=== PATIENT | male | born 1960 | race Caucasian/White ===

== ENCOUNTER → 2020-02-19 07:06 | Outpatient (CLI) | payer BC, SELFPAY ==
--- NOTE | 2020-02-19 07:10 | CT_ITS ---
STUDY: CT SCAN OF LOWER EXTREMITY RIGHT REASON FOR EXAM: Male, 60 years old. OSTEOARTHRITIS KERMIT RT KNEE, DB, HTN RADIATION DOSAGE (If Supplied By Facility): CTDIvol = ( 18.76 ) mGy, DLP = ( 1151.41 ) mGycm. Individualized dose optimization techniques were used for this CT.? TECHNIQUE: Multiple axial tomographic images of the hip joint, knee joint and ankle joints were obtained. Coronal and sagittal reconstructions obtained as well. COMPARISON: None. FINDINGS: The hip joint is unremarkable. No significant joint space narrowing is seen. There is a marked degree of joint space narrowing involving the medial compartments of the knee joint with a degenerative spur formation along the medial femoral condyle as well as the medial tibial plateau. Minimal subchondral sclerosis is seen in the medial tibial plateau. Minimal joint effusion. Imaging of the ankle joint was obtained. No significant abnormality is seen. CT/Extremity Lower without Contra IMPRESSION: Marked degree of joint space narrowing involving the medial compartment of knee joint as described. Electronically Signed: Vern Joseph, at 12:52 EST , Service support ,
== END ==
PROVIDERS: PCP Family Medicine; Referring Provider Specialist; Visit Provider Specialist
DX: M17.11 Unilateral primary osteoarthritis, right knee (principal)
CPT/HCPCS: 73700

== ENCOUNTER 2020-03-20 06:12 | Day surgery (SDC) | payer BC, SELFPAY ==
--- NOTE | 2020-02-19 13:21 | HP.PCM_ITS ---
History and Physical History and Physical [facility] Patient Name: Raheem Mckoy : 1960 From: BETHANY DUKE PA-C DATE OF SURGERY: 03/06/2020 SCHEDULED PROCEDURE: right knee unicompartmental knee replacement versus total knee arthroplasty HISTORY OF PRESENT ILLNESS: Preoperative history and physical exam was performed on February 19, 2020. This is a 60-year-old male who has been having ongoing pain for over 8 years. He has been treated by an outside orthopedic surgeon who has treated him conservatively for the past several years. Patient received a recent corticosteroid injection on December 07, 2019 which only gave a few days of relief. He has had previous Euflexxa injections with no relief in symptoms. He has had multiple corticost eroid injections in the past. He has been through formal physical therapy with no relief. He has attempted bracing with no relief. His pain can reach 7/10 with activities. Pain is constant, aching, sore. Pain is increased going up and down stairs. He has pain over the medial aspect of the knee. Patient has fallen and tripped/stumbled due to the knee pain. He feels unsafe climbing. Patient denies previous surgery on the right knee. He denies any fevers, chills, recent infections. He has medical history pertinent for type 2 diabetes mellitus and hypertension. Pain is waking him at night. He has had previous MRI in the past which has shown a torn meniscus which was treated conservatively. After failing conservative measures and discussing treatment options, the patient does wish to proceed with a right unicompartmental knee replacement versus total knee arthroplasty. We are obtaining surgical clearance from the primary care physician Dr. Acevedo. REVIEW OF SYSTEMS: ROS: Const: Denies change in appetite, fever and weight change. CV: Denies chest pain, heart murmur and irregular heartbeat. Resp: Denies cough, pneumonia, shortness of breath, tuberculosis and wheezing. GI: Denies constipation, diarrhea, heartburn, nausea, rectal itching, bloody stools and vomiting. : Denies incontinence. Musculo: Reports gait disturbance, trouble walking and weakness, but denies leg swelling and pain. Skin: Reports tattoo, but denies Raynaud's and history of shingles. Neuro: Denies ambulatory dysfunction, dizziness, numbness/tingling and tremor. Psych: Denies anxiety, insomnia and stress. Drew/Lymph: Denies anemia, bleeding/bruising tendency and past transfusion. Reviewed, no changes. PAST MEDICAL HISTORY: Advance Care Plan: No Advance Directives Effective Date: 01/25/2020 PMH: Medical Problems: Diabetes, High Blood Pressure Accidents: None Surgical Hx: Vasectomy - (1999) RT Wrist - (1999) benign tumor removal Anesthesia Complications: None Assistive Devices: Glasses, Contacts Reviewed, no changes. SOCIAL HISTORY: SH: Marital: Single.Occupation: [employer] Manager.Work Status: Not Working Currently - [employer].Hand Dominance: Right-handed. Personal Habits: Cigarette Use: Never Smoked Cigarettes.Smokeless Tobacco: Current Smokeless Tobacco User.E-Cigarette Use: Never used.Alcohol: Daily.Drug Use: Denies Use.Enjoy Exercising: Never Exercises. Reviewed, no changes. VITALS: Ht: 69 Wt: 212lb Wt k.163 BMI: 31.3 BP: 112/62 Pulse: 68 Resp: 18 T: 97.2 T: 36.2C ALLERGIES: No Known Drug Allergy Environmental - Ragweed-Sneezing MEDICATIONS: Oxycodone HCL 5 mg 1-2 tab by mouth every 4 hours, Promethazine HCL 12.5 mg 1-2 tablets by mouth every 6 hours, Famotidine 20 mg 1 by mouth every day, Amlodipine Besylate 5 mg 1 po qd, Lisinopril-Hydrochlorothiazide 20-25 mg 1 po qd, Metformin HCL ER 500 mg 2 po qd, Aspirin 81 81 mg 1 po qd, Multivitamin 1 po qd, Fish Oil 1000 mg 1 po qd, Loratadine 10 mg 1 po qd, Meloxicam 15 mg 1 po qd, Januvia 25 mg 1 po qd PRE-OP EXAM: General appearance:NORMAL Other: Eyes: Conjunctivae and lids: NORMAL Pupils: ERR Ears, Nose, Mouth, and Throat: NORMAL Other: Inspection of lips, teeth and gums: NORMAL Other: Neck: Examination of neck: no masses noted. Respiratory: Assessment of respiratory effort: NORMAL Other: Auscultation of lungs: clear to auscultation no wheezes, rhonchi or rales. Cardiovascular: Auscultation of heart: regular rate and rhythm, no murmurs, gallops or rubs. Exam of carotid arteries: NORMAL Other: Gastrointestinal: Exam of abdomen: soft, nontender, nondistended bowel sounds present. PHYSICAL EXAMINATION: Patient does walk with an antalgic gait. Right knee is cool to touch without erythema or signs of infection. He has trace effusion. Varus deformity of the right knee. There is tenderness to palpation along the medial joint line of the right knee. Nontender to palpation lateral joint line. Correctable varus alignment. Range of motion: Lacks 3 of full extension to 125 flexion on the right. Stable to anterior/posterior drawer. Sensation intact to light touch. IMAGING STUDIES: Previous x-rays of the right knee reveal medial joint space narrowing, subchondral sclerosis, osteophyte formation consistent with severe medial compartment stage IV osteoarthritis. Lateral compartment appears well maintained with trace osteophyte off the lateral tibial plateau. Varus alignment. IMPRESSION: 1. Right knee osteoarthritis 2. Type 2 diabetes mellitus 3. Hypertension PLAN: I did discuss and review with the patient all treatment options including surgical versus nonsurgical options. Patient does wish to proceed with the above-stated procedure. Potential risks, benefits, and complications of the procedure were discussed in detail including but not limited to , infection, nerve and blood vessel damage, persistent pain, numbness, tingling, paresthesias, blood clot, pulmonary embolism, and requirement for possible further surgery. The patient expressed full understanding and has no further questions for the doctor. Patient does agree to proceed with the above-stated procedure and has signed the surgery consent form. We discussed the current risks associated with COVID 19. This does include the risk of exposure while in the hospital. Patient was reassured local hospitals have low infection rates and are taking all necessary precautions to avoid exposure to patients. In addition, we discussed strategies that can be used to help limit exposure including those that limit the patient's time in the hospital. Also using strategies to limit the patient's need for continued inpatient services after being discharged from the hospital. Patient was notified that we will need to comply with any screening or testing the hospital wishes to perform or that surgery may be delayed for any positive results. This dictation was created using voice recognition software. Phonetic and/or grammatical errors may exist. ___ I have re-examined the patient. There are no clinical changes since date of exam. ___ See progress notes for changes. ___ Dictated on admission Date: Time: Signature:
--- NOTE | 2020-02-26 09:27 | EKG12_ITS ---
Test Reason : PRE OP Blood Pressure : / mmHG Vent. Rate : 095 BPM Atrial Rate : 095 BPM P-R Int : 186 ms QRS Dur : 090 ms QT Int : 336 ms P-R-T Axes : 041 052 074 degrees QTc Int : 422 ms Normal sinus rhythm Normal ECG Confirmed by RICHARD MCCORMICK, CARLOS ([id number]), continuity editor VINICIO CORBETT ([id number]) on 02/28/2020 11:00:53 AM Referred By: Sunny Elias Confirmed By:CARLOS RAMOS MD
[2020-02-26 10:07] LABS: Absolute Lymphocyte Count 2.39 X10^3/uL (0.83-4.51); Absolute Neutrophil Count 3.8 X10^3/uL (2.0-7.7); Basophil# 0.05 X10^3/uL; Basophil% 0.7 % (0-1); Eosinophil# 0.39 X10^3/uL; Eosinophils% 5.1 % (0-5); Hematocrit 44.9 % (40-54); Hemoglobin 16.1 g/dL (13.0-16.5); Lymphocyte # 2.39 X10^3/ul (4.0); Lymphocyte % 31.2 % (19-41); Mean Corp Hgb Conc 35.9 g/dL (32-36); Mean Corpuscular Hgb 32.1 pg (27.0-32.0); Mean Corpuscular Volume 89.4 fL (80-94); Mean Platelet Vol. 8.8 fl (6.2-12.0); Monocyte# 0.94 X10^3/uL; Monocyte% 12.3 % (0-10); NRBC Flagged by Analyzer 0 % (0-5); Neutrophil # 3.84 X10^3/uL (2.7-7.7); Neutrophil % 50.2 % (47-70); Platelet Count 283 K/mm3 (150-450); RBC Distribution Width CV 11.9 % (11.6-14.6); RBC Distribution Width SD 38.4 fl (35.1-43.9); Red Blood Count 5.02 M/mm3 (4.6-6.2); White Blood Count 7.7 K/mm3 (4.4-11.0)
[2020-02-26 10:18] LABS: Prothrombin Time (Protime)PT. 12.8 SECONDS (11.7-14.9)
[2020-02-26 10:19] LABS: Partial Thromboplast Time 25.1 Seconds (24.1-36.2)
[2020-02-26 10:36] LABS: AST(SGOT) 24 U/L (15-37); Alanine Aminotransfer ALT/SGPT 44 U/L (16-61); Albumin, Serum 4.1 g/dL (3.2-5.0); Alkaline Phosphatase 54 U/L (45-117); Bilirubin, Direct 0.18 mg/dL (0.00-0.30); Magnesium 1.9 mg/dL (1.6-2.6); Protein, Total 8.1 g/dL (6.4-8.2)
[2020-02-26 10:39] LABS: Anion Gap 6 (5-15); BUN 13 mg/dL (7-18); BUN/Creat Ratio 11.3 RATIO (10-20); Calcium,Total 9.4 mg/dL (8.5-10.1); Chloride 100 mmol/L (98-107); Creatinine, Serum 1.15 mg/dL (0.70-1.30); EST Glomerular Filtration Rate 69 mL/min (>60); Est Glom Filt Rate - Afr Amer 84 mL/min (>60); Glucose 201 mg/dL (74-106); Potassium 3.8 mmol/L (3.5-5.1); Sodium Level 134 mmol/L (136-145)
[2020-02-26 10:47] LABS: Hemoglobin A1c 6.3 % (3.8-5.6)
[2020-03-06 06:25] LABS: Bedside Glucose 201 mg/dL (70-110)
[2020-03-20] VITALS (11 sets, daily range): BP systolic 139–172; BP diastolic 71–94; PULSE 18–96; RESP 16–18; TEMP 36.6–37.1; O2SAT 95–100; BMI 31.6
[2020-03-20] MEDS: Lactated Ringers 1,000 ML 75 ML IV (07:00)
[2020-03-20] MEDS: Lactated Ringers 1,000 ML 999 ML IV ×3 (07:00→10:27)
[2020-03-20 07:06] LABS: Bedside Glucose 268 mg/dL (70-110)
[2020-03-20] MEDS: Scopolamine 1mg/72hr Patch 1 PATCH TD (07:11)
[2020-03-20] MEDS: Celecoxib 200 MG Capsule 400 MG PO (07:11)
[2020-03-20] MEDS: Acetaminophen 500 MG Tablet 1000 MG PO ×2 (07:12→14:00)
[2020-03-20] MEDS: Gabapentin 600 MG Tablet PO (07:12)
[2020-03-20] MEDS: Cefazolin 2 GM in 0.9% Normal Saline 100 ML IV (08:25)
[2020-03-20] MEDS: dexAMETHasone 10 MG/ML Vial IV (08:27)
--- NOTE | 2020-03-20 09:27 | OP.PCM_ITS ---
Report of Operation Date of Procedure: 03/20/20 Pre-Operative Diagnosis: Right knee primary osteoarthritis, medial compartment Post-Operative Diagnosis: Right knee primary osteoarthritis, medial compartment Surgery/Procedure Performed:: Right knee medial compartment partial knee replacement Description of Surgical Findings:: Lateral compartment was healthy, patellofemoral compartment was stable. ACL was intact and functioning proposal development manager: Hi Espinoza Type of Anesthesia:: Spinal Anesthesiologist: Harinder Eisenberg Special Medications: 2 g Ancef, 1 g TXA at incision, 1 g TXA closure, 10 mg Decadron, joint cocktail (5 mg Duramorph, 30 mL of 0.5% Ropivicaine, 1000 units of epinephrine, 30 mg of Toradol) Specimen's removed: Bony cuts Estimated Blood Loss (mL): 25 Fluids Replaced: 800 mL crystalloid Description of Procedure: Implants used: 1. Dileep size 5 femur 2. Dileep size 5 tibia 3. Dileep 9 mm polyethylene component Brief history operative indications: 60-year-old M with history of R knee anterior medial varus osteoarthritis with radiographic findings with loss of joint space, osteophyte formation and subchondral sclerosis. Failed conservative measures as mentioned in the H&P. Discussion of total knee arthroplasty as well as risk and benefits were discussed the patient including but not limited to blood loss, DVTs, PEs, neurovascular damage, general risk of anesthesia including loss of life, and stiffness or instability were discussed with patient. Patient demonstrated understanding and was able to sign informed consent. Procedure: On the date of procedure patient's R lower extremity was marked in the preoperative area. The patient was then taken back to the operating room where the patient was placed on the table in the supine position. All bony prominences were identified a well-padded. Anesthesia assumed control of the C-spine and airway and remained controlled throughout the remainder of the procedure. A tourniquet was placed on the R upper thigh and the leg was prepped in a sterile fashion. The surgeon then scrubbed at this time .Upon reentering the room R lower extremity was draped in a standard orthopedic fashion. A timeout was then called and everyone agreed upon the side, the site, the procedure to be performed, patient's identity and antibiotics given. Esmarch bandage was used to exsanguinate the extremity and the tourniquet was placed up to 250 mmHg with the knee in flexion. A midline skin incision was made and sharp dissection was taken down through skin subcutaneous tissue and fat. The standard medial parapatellar incision was made and the patella was subluxed medially. The standard minimal MCL release was done and a minimal fat pad for visualization. At this time we directed our attention towards the placement of the robotic navigation pins. 2 pins were placed in the tibia handbreadth below the tibial tubercle and 2 pins were placed in the femur with the patella in the trochlear groove 1 handbreadth above the patella. Bicortical fixation was obtained on all 4 pins. Once these pins were placed the arrays and checkpoints were placed and the femur and tibia were registered. After registering the bony landmarks bone spurs were removed and the soft tissues were tensioned and this intraoperative information was used to make intraoperative adjustments to implant position and balance the knee. The robotic arm was brought in and our attention was then directed towards the femur at this time based on our preoperative and intraoperative planning the size 5 femoral component was burred appropriately to the distal femur. Once we had appropriately burred the distal femur the pegs and he will were also burred. Next our attention was directed to the tibia. Where using our preoperative plan we buried the proximal tibia for a size 5 tibial component and then appropri ately burred the pegs. Once we had burred the femur and the tibia all excess osteophytes were again removed. The trial components were placed in the tibial trial component was used to press the posterior keel. The knee was taken through range of motion and balancing was verified using the robotic navigation. Once we were happy with our components trial components were removed and the bone was repaired reaming the distal femur and using the toothbrush saw to slot the proximal tibia. Once the bone was adequately prepared the knee was scoped. Out normal saline and 40 mL of joint cocktail was injected in the posterior medial knee. The bone ends were appropriately dried and once the cement was ready the final components were cemented into place with the trial polyethylene and held at 20? flexion. Once the cement had adequately cured and all cement was removed and the final 9 millimeter polyethylene was put into place and the final knee showed is good patella tracking and well-balanced knee without overcorrection. It should be noted that throughout the procedure the MCL was protected during all bony cuts by my medical assistant secretary. Once the final components were placed a the wound was copiously irrigated with 500 mL dilute Betadine solution followed by 1 L of normal saline solution and the periarticular injection was given. The wound was closed in a layer dong fashion using #1 vicryl interrupted sutures for the arthrotomy, 2-0 interrupted Vicryl suture for the subcuticular layer and naveen for final skin closure. A sterile compressive dressing was then placed. The patient was then awakened from anesthesia, [facility] and transferred to the PACU for recovery. Post op plan DVT ppx: ASA 81mg BID for six weeks, thigh high compression stockings for 2 weeks Follow up: in office in 2 weeks for wound check PT: to start POD #0 at hospital, outpatient PT should be arranged. My physician computer forensics examiner (PE) was a vital part of this case. They were important in appropriate retraction during the case, and protection of soft tissues during bony cuts. Their intimate knowledge of the case and my steps aided in safe and expedient completion of the procedure as well as appropriate position of the leg during the case. They were also vital in assisting with closure under my direct supervision. - Complications No intraoperative complications - Admit VTE Documentation VTE Present on Admission: No VTE Mechan Device Prophylaxis: SCD's, Thigh High STEVIE Hose VTE Pharm Prophylaxis ordered?: Yes
--- NOTE | 2020-03-20 10:22 | RAD_ITS ---
STUDY: X-RAY - RIGHT KNEE REASON FOR EXAM: Postop right knee arthroplasty. TECHNIQUE: 2 view(s) of the knee. COMPARISON: CT report 02/19/2020. FINDINGS: Normal visualized distal femur. Normal visualized proximal tibia and fibula. Normal proximal tibiofibular articulation. There is a medial femorotibial unicompartmental arthroplasty without evidence of complication. Normal lateral femorotibial compartment. Normal patellofemoral articulation. There is postoperative gas in the soft tissues and knee joint and overlying skin naveen. RAD/Knee 1 or 2 Views IMPRESSION: Uncomplicated medial femorotibial unicompartmental arthroplasty. Electronically Signed: Fahad Torres MD at 10:49 EST Tel , Service support ,
[2020-03-20] MEDS: Insulin Lispro 100 UNIT/ML INSULN.PEN SC (10:42)
[2020-03-20 10:50] LABS: Bedside Glucose 220 mg/dL (70-110)
[2020-03-20] MEDS: Cefazolin 1 GM/50 ML BAG IV (13:45)
== END 2020-03-20 14:50 | disposition home or self-care (01) ==
LOC: SDC 06:14 → AC 06:14
PROVIDERS: Anesthesiology; PCP Family Medicine; Referring Provider Specialist; Visit Provider Specialist
PROC: (CPT 27446; principal; 2020-03-20 07:45)
DX: M17.11 Unilateral primary osteoarthritis, right knee (principal); E11.9 Type 2 diabetes mellitus without complications; I10 Essential (primary) hypertension; F17.200 Nicotine dependence, unspecified, uncomplicated; Z79.84 Long term (current) use of oral hypoglycemic drugs; Z79.899 Other long term (current) drug therapy; Z20.828 Contact with and (suspected) exposure to other viral communicable diseases
CPT/HCPCS: 27446; 36415; 73560; 80048; 80076; 82962; 83036; 83735; 85025; 85610; 85730; 87081; 87426; 93005; 97162; C1776; C9803; J7120; J2405

== ENCOUNTER 2021-06-10 19:07 | Emergency (ER) | payer BC, SELFPAY ==
[2021-06-10 19:08] VITALS: BP 132/68; PULSE 116; RESP 18; TEMP 37.1; O2SAT 97; BMI 30.4
--- NOTE | 2021-06-10 19:37 | EDS_ITS ---
HPI History of Present Illness Chief Complaint: Complaint Detail of Chief Complaint: Right leg pain and swelling Informant: patient Onset/Context/Timing Onset: Weeks Current Severity: Mild Maximum Severity: Moderate Narrative Narrative: Patient presents with a 2 to 3-week history of right lower extremity pain and swelling. He states he measured his legs tonight and his right leg is 3 inches larger in diameter than his left. He has a history of prostate cancer and recently underwent a prostatectomy. He states he had a stent that was removed about 2 weeks ago. He continues to have problems controlling his urination. His urologist did place him on some oral medication for bladder control symptoms but states he has not had any relief. He denies dysuria or fever. No back pain. No chest pain or shortness of breath. [facility] Medical History Diabetes Hypertension Prostate cancer Home Medications amlodipine 5 mg PO DAILY 02/21/20 [History Last Taken 03/20/20] aspirin 81 mg PO DAILY@0800 02/21/20 [History Last Taken Unknown] lisinopril-hydrochlorothiazide 1 ea PO DAILY 02/21/20 [History Last Taken Unknown] loratadine 10 mg PO DAILY 02/21/20 [History Last Taken Unknown] metformin 1,000 mg PO DAILY 02/21/20 [History Last Taken Unknown] multivitamin with minerals 1 ea PO DAILY 02/21/20 [History Last Taken Unknown] omega-3 fatty acids-fish oil 1 ea PO DAILY 02/21/20 [History Last Taken Unknown] sitagliptin 100 mg PO DAILY 02/21/20 [History Last Taken Unknown] ciprofloxacin HCl [Cipro] 500 mg PO BID #20 tab 06/10/21 [Rx Last Taken Unknown] Allergy/AdvReac Type Severity Reaction Status Date / Time No Known Allergies Allergy Verified 06/10/21 19:08 Surgical History History of prostatectomy Social History Smoking Status: Never smoker ROS ROS ED Constitutional Constitutional ED: Denies chills or fever(s) Eyes Eyes: Denies change in vision ENT ENT ED: Denies sore throat Cardiovascular Cardiovascular: Denies chest pain Respiratory/Chest Respiratory/Chest: Denies cough or dyspnea Gastrointestinal Gastrointestinal: Denies abdominal pain, diarrhea, nausea or vomiting Genitourinary Genitourinary ED: Reports other Details: Urinary incontinence Musculoskeletal Musculoskeletal: Reports other Details: Right lower extremity pain and swelling ; Denies back pain Integumentary Denies rash Neurologic Neurologic: Denies headache(s) Allergic/Immunologic Allergic/Immunologic ED: Denies urticaria EXAM Physical Exam Const Vital Signs: 06/10/21 19:08 06/10/21 21:19 Temperature 98.8 F Temperature Source Temporal Pulse Rate 116 H 98 Respiratory Rate 18 16 Blood Pressure 132/68 H 120/75 Blood Pressure Mean 89 90 Pulse Ox 97 98 Oxygen Delivery Method Room Air Positive well nourished and well developed General Appearance ED: well developed HEENT Reports moist mucous membranes Eyes PERRL and EOMs intact bilaterally Neck supple Chest Wall inspection of chest normal and palpation of chest normal Resp normal respiratory effort and clear to auscultation bilaterally Cardio regular rate and regular rhythm GI normal to inspection, nondistended, normoactive bowel sounds and non-tender Palpation: soft Extremity Extremity Narrative: 2+ edema noted to the right lower extremity. No open wounds. Strong distal pulses. Neuro oriented x3 Sensorium / Orientation: alert Psych mental status grossly normal Skin no rashes or lesions noted MDM MDM MDM Narrative Medical decision making narrative: Lab work, urinalysis, right lower extremity ultrasound obtained. Lab Data Attestation: I reviewed the patient's lab results. Labs: Laboratory Results - last 24 hr 06/10/21 06/10/21 06/10/21 19:40 19:40 19:40 WBC 12.3 H RBC 4.02 L Hgb 12.2 L Hct 35.0 L MCV 87.1 MCH 30.3 MCHC 34.9 RDW Std Deviation 36.7 RDW Coeff of Quin 11.7 Plt Count 309 MPV 8.6 Immature Gran % (Auto) 0.600 Neut % (Auto) 89.9 H Lymph % (Auto) 5.1 L [place] % (Auto) 4.1 Eos % (Auto) 0.1 Baso % (Auto) 0.2 Absolute Neuts (auto) 11.1 H Absolute Lymphs (auto) 0.63 L Nucleated RBC % 0 Sodium 134 L Potassium 3.5 Chloride 101 Carbon Dioxide 26.0 Anion Gap 7 BUN 16 Creatinine 1.53 H Estim Creat Clear Calc 53.68 Est GFR (MDRD) Af Amer 60 Est GFR (MDRD) Non-Af 50 L BUN/Creatinine Ratio 10.5 Glucose 165 H Calcium 9.4 Urine Color Yellow Urine Clarity Cloudy Urine pH 6.0 Ur Specific [place] 1.020 Urine Protein 500 H Urine Glucose (UA) Normal Urine Ketones 5 H Urine Occult Blood 250 H Urine Nitrite Positive H Urine Bilirubin Negative Urine Urobilinogen 1 H Ur Leukocyte Esterase 500 H Urine RBC 10-25 SEEN Urine WBC >100 SEEN Ur Squamous Epith Cells 0 SEEN Urine Bacteria 1+ Urine Mucus 0 SEEN Radiography Diagnostic Testing: Clinical Impression(s) from Imaging Studies Venous Duplex 06/10/21 19:40 IMPRESSION: No sonographic evidence of deep venous thrombosis. Electronically Signed: Yusuf Monae DO at 21:27 EDT , Abdomen/Pelvis CT 06/10/21 21:06 IMPRESSION: Right greater than left pelvic sidewall fluid collections. Ileus. Electronically Signed: Maurice Humphries MD at 21:45 EDT , Treatment and Re-Evaluation Narrative: Right lower extremity ultrasound reveals no evidence of DVT. Lab work is reviewed. White count is mildly elevated at 12.3. Creatinine is 1.53, only slightly elevated when compared to prior. Urinalysis shows significant infection with greater than 100 white cells and 1+ bacteria. Nitrites are positive. Urine is sent for culture and patient given a dose of IV Rocephin. CT scan of the abdomen pelvis with IV contrast is obtained. This reveals evidence of bilateral pelvic sidewall fluid collections right side greater than left. I believe this is likely causing strain on venous return and therefore leading to the patient's right lower extremity edema. I spoke with Dr. Holt, on-call for patient's urologist Dr. Vasquez. Patient will take a copy of the CT scan with him and is to be seen in the office tomorrow. I will also electronically sent the images to [facility]. Prescription for Cipro will be sent to the pharmacy. Discharge Plan Triage Chief Complaint: Complaint ED Provider: Gisel Dubon Dx/Rx/DC Orders Clinical Impression: UTI (urinary tract infection), Post-operative complication Instructions: ED Bladder Infection, Male (Adult) Prescriptions: New ciprofloxacin HCl [Cipro] 500 mg tablet 500 mg PO BID Qty: 20 RF: 0 No Action metformin 500 MG tablet 1,000 mg PO DAILY RF: 0 amlodipine 5 MG tablet 5 mg PO DAILY RF: 0 lisinopril-hydrochlorothiazide 1 EACH tablet 1 ea PO DAILY RF: 0 aspirin 81 MG tablet,chewable 81 mg PO DAILY@0800 RF: 0 multivitamin with minerals 1 EACH tablet 1 ea PO DAILY RF: 0 omega-3 fatty acids-fish oil 1 EACH capsule 1 ea PO DAILY RF: 0 sitagliptin 100 MG tablet 100 mg PO DAILY RF: 0 loratadine 10 MG capsule 10 mg PO DAILY RF: 0 Primary Care Provider: Zachariah Acevedo Referrals: Zachariah Acevedo MD [Primary Care Provider] - Activity Restrictions/Additional Instructions: As discussed, you have fluid collections noted in your pelvis, right greater than left. This is hindering blood flow return from your leg therefore causing the swelling. Please call your urologist office first thing in the morning to be seen. They should be expecting your call. Please take the disc with your images along to your appointment. Disposition Disposition: Home, Self Care
--- NOTE | 2021-06-10 19:40 | US_ITS ---
INDICATION: RT LEG SWELLING EXAMINATION: Ultrasound US Venous Duplex LE Unilat / Limited TECHNIQUE: Thorne scale, pulse wave, and color flow Doppler imaging was performed of the lower extremity venous system. The right greater saphenous, common femoral, femoral, and popliteal veins were interrogated. Contralateral left common femoral vein assessed for comparison. COMPARISON: CT abdomen and pelvis obtained from the same evening. FINDINGS: There is normal compression, augmentation, and signal throughout the visualized deep lower extremity veins of the right leg. Left common femoral vein also normal in appearance. No mass or fluid collection. US/Venous Duplex Imag/Limited/Uni IMPRESSION: No sonographic evidence of deep venous thrombosis. Electronically Signed: Yusuf Monae DO at 21:27 EDT ,
[2021-06-10 19:53] LABS: Mucous, Urine 0 SEEN /hpf (<or=2+); Squamous Epithelial Cells - UA 0 SEEN /hpf (0-5)
[2021-06-10 19:55] LABS: Absolute Lymphocyte Count 0.63 X10^3/uL (0.83-4.51); Absolute Neutrophil Count 11.1 X10^3/uL (2.0-7.7); Basophil# 0.02 X10^3/uL; Basophil% 0.2 % (0-1); Eosinophil# 0.01 X10^3/uL; Eosinophils% 0.1 % (0-5); Hemoglobin 12.2 g/dL (13.0-16.5); Lymphocyte # 0.63 X10^3/ul (0.83-4.51); Lymphocyte % 5.1 % (19-41); Mean Corp Hgb Conc 34.9 g/dL (32-36); Mean Corpuscular Hgb 30.3 pg (27.0-32.0); Mean Corpuscular Volume 87.1 fL (80-94); Mean Platelet Vol. 8.6 fl (6.2-12.0); Monocyte# 0.51 X10^3/uL; Monocyte% 4.1 % (0-10); NRBC Flagged by Analyzer 0 % (0-5); Neutrophil # 11.05 X10^3/uL (2.7-7.7); Neutrophil % 89.9 % (47-70); Platelet Count 309 K/mm3 (150-450); RBC Distribution Width CV 11.7 % (11.6-14.6); RBC Distribution Width SD 36.7 fl (35.1-43.9); Red Blood Count 4.02 M/mm3 (4.6-6.2); White Blood Count 12.3 K/mm3 (4.4-11.0)
[2021-06-10 19:56] LABS: Color, Urine Yellow (Yellow); Glucose, Dipstick Normal (Normal); Ketone-Dipstick 5 mg/dl (Negative); Leukocyte Esterase-Dipstick 500 /ul (Negative); Nitrite-Dipstick Positive (Negative); Occult Blood-Urine 250 /ul (Negative); Protein-Dipstick 500 mg/dl (Negative); Urine Bilirubin Dipstick Negative (Negative); Urine Clarity Cloudy (Clear); Urine Urobilinogen 1 mg/dl (Normal)
[2021-06-10 20:11] LABS: Bacteria 1+ /hpf (None Seen); White Blood Cells >100 SEEN /hpf (0-5)
[2021-06-10 20:12] LABS: Red Blood Cells-Urine 10-25 SEEN /hpf (0-5)
[2021-06-10 20:13] LABS: Anion Gap 7 (5-15); BUN 16 mg/dL (7-18); BUN/Creat Ratio 10.5 RATIO (10-20); Calcium,Total 9.4 mg/dL (8.5-10.1); Chloride 101 mmol/L (98-107); Creatinine, Serum 1.53 mg/dL (0.70-1.30); EST Glomerular Filtration Rate 50 mL/min (>60); Est Glom Filt Rate - Afr Amer 60 mL/min (>60); Estimated Creatinine Clearance 53.68 ml/min; Glucose 165 mg/dL (74-106); Potassium 3.5 mmol/L (3.5-5.1); Sodium Level 134 mmol/L (136-145)
--- NOTE | 2021-06-10 21:06 | CT_ITS ---
STUDY: CT ABDOMEN AND PELVIS WITH CONTRAST REASON FOR EXAM: Male, 61 years old. RLE edema RADIATION DOSAGE (If Supplied By Facility): CTDIvol = ( 14.80 ) mGy, DLP = ( 2021.67 ) mGycm TECHNIQUE: Transaxial images were obtained from the dome of the diaphragm to the symphysis pubis without oral contrast. IV 100mL Isovue-300 was administered. Sagittal and coronal images were reconstructed. Individualized dose optimization techniques were used for this CT. COMPARISON: None. FINDINGS: The visualized lung bases are unremarkable. The visualized portions of the heart are within normal limits. Normal liver. Normal gallbladder and extrahepatic biliary system. Normal spleen. Normal pancreas. Normal bilateral adrenal glands. Normal right kidney. Normal left kidney. Normal visualized stomach. Multiple air-fluid levels throughout the small and large bowel. Normal colon. Appendix is not identified. Normal abdominal aorta. Normal inferior vena cava. Normal retroperitoneum. Bladder is decompressed. Right greater than left pelvic sidewall fluid collections or cystic lesions measuring 9 x 5.9 cm on the right and 4.6 x 3.4 cm on the left. Normal abdominal wall. Moderate dextroconvex scoliosis. Pseudoarticulation L5-S1 on the right. CT/Abdomen/Pelvis W IV Cont ONLY IMPRESSION: Right greater than left pelvic sidewall fluid collections. Ileus. Electronically Signed: Maurice Humphries MD at 21:45 EDT ,
[2021-06-10] MEDS: Ceftriaxone 1 GM/50 ML BAG IV (21:17)
[2021-06-10 21:19] VITALS: BP 120/75; PULSE 98; RESP 16; O2SAT 98
[2021-06-10 22:36] VITALS: TEMP 37.2
[2021-06-10] MEDS: Acetaminophen 500 MG Tablet 1000 MG PO (22:42)
[2021-06-10 22:43] VITALS: BP 131/87; PULSE 75; RESP 20; TEMP 37.7; O2SAT 100
--- NOTE | 2021-06-10 22:51 | ED.RN ---
pt found to be shivering. temp 99.[address] durán aware. Tylenol given. Dr Durán in to speak to pt. Pt agrees to follow up with urologist tomorrow.
== END 2021-06-10 23:16 | disposition home or self-care (01) ==
PROVIDERS: Emergency Provider Emergency Medicine; PCP Family Medicine; Visit Provider Emergency Medicine
DX: N39.0 Urinary tract infection, site not specified (principal); C61 Malignant neoplasm of prostate; E11.9 Type 2 diabetes mellitus without complications; M79.604 Pain in right leg; M79.89 Other specified soft tissue disorders; I10 Essential (primary) hypertension; Z79.899 Other long term (current) drug therapy; Z79.82 Long term (current) use of aspirin
CPT/HCPCS: 74177; 80048; 81001; 85025; 87086; 87088; 93971; 96365; 99285; Q9967; A4216